=== PATIENT | female | born 1990 | race Two or more races ===

== ENCOUNTER 2016-11-18 14:27 | Emergency (ER) | payer MEDICAID ==
[2016-11-18] MEDS ORDERED: NORMAL SALINE 1000 ML 1,000 ML IV ONE (15:27)
[2016-11-18 15:49] LABS: APPEARANCE,URINE SLIGHTLY-CLOUDY; BILIRUBIN,URINE NEGATIVE (NEGATIVE); GLUCOSE, URINE NEGATIVE (NEGATIVE); KETONES,URINE 20 mg/dL (NEGATIVE); LEUKOCYTE ESTERASE,URINE NEGATIVE (NEGATIVE); NITRITE,URINE NEGATIVE (NEGATIVE); PROTEIN,URINE NEGATIVE (NEGATIVE); URINE SPECIFIC GRAVITY 1.015; UROBILINOGEN,URINE NEGATIVE mg/dL (<2.0)
[2016-11-18 16:07] LABS: URINE BARBITURATES SCREEN NEGATIVE; URINE METHADONE SCREEN NEGATIVE; URINE PHENCYCLIDINE SCREEN NEGATIVE
[2016-11-18 17:01] LABS: ABSOLUTE BASOPHILS # (AUTO) 0.1 10^3/uL (0.0-0.2); ABSOLUTE EOSINOPHILS # (AUTO) 0.1 10^3/uL (0.0-0.6); ABSOLUTE LYMPHOCYTES (AUTO) 0.8 10^3/uL (0.5-4.7); ABSOLUTE MONOCYTES (AUTO) 0.6 10^3/uL (0.1-1.4); BASOPHILS % (AUTO) 0.8 % (0-2); EOSINOPHILS % (AUTO) 0.5 % (0-6); HEMATOCRIT 43.6 % (36.0-47.0); HEMOGLOBIN 14.3 g/dL (12.0-15.5); HGB HCT DIFFERENCE -0.7; LYMPHOCYTES % (AUTO) 5.2 % (13-45); MEAN CORPUSCULAR HGB CONC 32.8 g/dL (32.0-36.0); MEAN CORPUSCULAR VOLUME 98 fl (80-97); MONOCYTES % (AUTO) 3.8 % (3-13); RED BLOOD COUNT 4.47 10^6/uL (3.72-5.28); RED CELL DISTRIBUTION WIDTH 13.2 % (11.5-14.0); SEGMENTED NEUTROPHILS % (AUTO) 89.7 % (42-78); WHITE BLOOD COUNT 14.5 10^3/uL (4.0-10.5)
[2016-11-18 18:39] LABS: ALANINE AMINOTRANSFERASE 29 U/L (9-52); ALBUMIN 5.2 g/dL (3.5-5.0); ALKALINE PHOSPHATASE 83 U/L (38-126); ASPARTATE AMINO TRANSFERASE 18 U/L (14-36); BILIRUBIN,TOTAL 0.6 mg/dL (0.2-1.3); BLOOD UREA NITROGEN 8 mg/dL (7-20); CALCIUM 9.6 mg/dL (8.4-10.2); CARBON DIOXIDE 18 mmol/L (22-30); CHLORIDE 108 mmol/L (98-107); CREATININE RESULT 0.75 mg/dL (0.52-1.25); GLUCOSE 103 mg/dL (75-110); LIPASE 39.4 U/L (23-300); POTASSIUM 4.2 mmol/L (3.6-5.0); SODIUM 146.3 mmol/L (137-145); TOTAL PROTEIN 7.8 g/dL (6.3-8.2)
[2016-11-18 18:42] LABS: ALCOHOL < 10 mg/dL (NONE DETECTED); ANION GAP 20 (5-19)
--- NOTE | 2016-11-18 20:03 | ER Document Report ---
ED General - General Chief Complaint: Probable Seizure Stated Complaint: POSSIBLE SEIZURE Past Medical History Neurological Medical History: Reports: Hx Seizures Physical Exam - Vital signs Vitals: Resp Pulse Ox 17 97 11/18/16 14:43 11/18/16 14:43 Course - Vital Signs Vital signs: Temp Pulse Resp BP Pulse Ox 98.1 F 91 16 132/80 H 99 11/18/16 21:27 11/18/16 21:27 11/18/16 21:27 11/18/16 21:27 11/18/16 21:27 - Laboratory Result Diagrams: 11/18/16 16:31 11/18/16 17:50 Laboratory results interpreted by me: 11/18/16 11/18/16 11/18/16 15:11 16:31 17:50 WBC 14.5 H MCV 98 H Seg Neutrophils % 89.7 H Lymphocytes % 5.2 L Absolute Neutrophils 13.0 H Sodium 146.3 H Chloride 108 H Carbon Dioxide 18 L Anion Gap 20 H Albumin 5.2 H Urine Ketones 20 H Urine Blood MODERATE H Salicylates < 1.0 L Acetaminophen < 10 L Discharge - Discharge Clinical Impression: possible seizure, Dehydration Condition: Good Disposition: HOME, SELF-CARE Instructions: Seizure, Known Epileptic ([facility]), Dehydration ([facility]) Additional Instructions: Continue to take your seizure medication. Follow-up with physicians provided to establish care here in [place] if you plan on staying for an extended period time. Prescriptions: Ondansetron [Zofran Odt 4 mg Tablet] 4 mg PO Q4HP PRN #30 tab.rapdis PRN Reason: Referrals: ELIU BROWN MD [ACTIVE STAFF] - Follow up as needed VARGHESE GRANADOS MD [ACTIVE STAFF] - Follow up as needed
[2016-11-18 21:27] VITALS: BP 132/80
[2016-11-18] MEDS ORDERED: ONDANSETRON ODT 4 MG TAB (6 TAB/DSPK) PO PRN (21:38)
--- NOTE | 2016-11-18 22:38 | ER Document Report ---
ED General - General Chief Complaint: Probable Seizure Stated Complaint: POSSIBLE SEIZURE - HPI Patient complains to provider of: possible seizure Notes: Patient coming in for possible seizure. Patient has friend bedside for states her saw the seizure activity described as generalized shaking outpatient was awake during the entire time. For the bedside taste patient was texting during the seizure. Patient states she takes Lamictal. Patient also is complains of nausea. Upon my initial evaluation patient is lying in bed and is uncooperative with staff however she is alert and awake. Patient initially does not want to cooperate with examination but then later on complies. No fevers no chills no abdominal pain chest pain had pain or trauma. Patient states increased stress over the last few days. Patient states she's never been diagnosed with pseudoseizures states her seizures are mostly grand mal. States she is compliant with her Lamictal Past Medical History - Social History Smoking Status: Unknown if Ever Smoked Family History: Reviewed & Not Pertinent Neurological Medical History: Reports: Hx Seizures Review of Systems - Review of Systems Constitutional: No symptoms reported EENT: No symptoms reported Cardiovascular: No symptoms reported Respiratory: No symptoms reported Gastrointestinal: Nausea Genitourinary: No symptoms reported Female Genitourinary: No symptoms reported Musculoskeletal: No symptoms reported Skin: No symptoms reported Hematologic/Lymphatic: No symptoms reported Neurological/Psychological: Seizure -: Yes All other systems reviewed and negative Physical Exam - Vital signs Vitals: Resp Pulse Ox 17 97 11/18/16 14:43 11/18/16 14:43 Interpretation: Normal - General General appearance: Appears well, Alert - HEENT Head: Normocephalic, Atraumatic Eyes: Normal Pupils: PERRL - Respiratory Respiratory status: No respiratory distress Chest status: Nontender Breath sounds: Normal Chest palpation: Normal - Cardiovascular Rhythm: Regular Heart sounds: Normal auscultation Murmur: No - Abdominal Inspection: Normal Distension: No distension Bowel sounds: Normal Tenderness: Nontender Organomegaly: No organomegaly - Back Back: Normal, Nontender - Extremities General upper extremity: Normal inspection, Nontender, Normal color, Normal ROM , Normal temperature General lower extremity: Normal inspection, Nontender, Normal color, Normal ROM , Normal temperature, Normal weight bearing. No: Kaylan's sign - Neurological Neuro grossly intact: Yes Cognition: Normal Orientation: AAOx4 Nba Coma Scale Eye Opening: Spontaneous Nba Coma Scale Verbal: Oriented Nba Coma Scale Motor: Obeys Commands Nba Coma Scale Total: 15 Speech: Normal Motor strength normal: LUE, RUE, LLE, RLE Sensory: Normal - Psychological Associated symptoms: Normal affect, Normal mood - Skin Skin Temperature: Warm Skin Moisture: Dry Skin Color: Normal Course - Re-evaluation Re-evalutation: 11/18/16 22:37 Laboratory dehydration. Patient was given IV fluids here no seizure activity seen. Patient and at 3 back to her normal self. Patient was discharged upon discharging patient vomited her krishna piper. Patient was then given a dose of Zofran sixpack of Zofran to go home and a prescription for Zofran. Patient was encouraged follow-up with local PCP or providers given and a neurologist. - Vital Signs Vital signs: Temp Pulse Resp BP Pulse Ox 98.1 F 91 16 132/80 H 99 11/18/16 21:27 11/18/16 21:27 11/18/16 21:27 11/18/16 21:27 11/18/16 21:27 - Laboratory Result Diagrams: 11/18/16 16:31 11/18/16 17:50 Laboratory results interpreted by me: 11/18/16 11/18/16 11/18/16 15:11 16:31 17:50 WBC 14.5 H MCV 98 H Seg Neutrophils % 89.7 H Lymphocytes % 5.2 L Absolute Neutrophils 13.0 H Sodium 146.3 H Chloride 108 H Carbon Dioxide 18 L Anion Gap 20 H Albumin 5.2 H Urine Ketones 20 H Urine Blood MODERATE H Salicylates < 1.0 L Acetaminophen < 10 L Discharge - Discharge Clinical Impression: possible seizure, Dehydration Condition: Good Disposition: HOME, SELF-CARE Instructions: Dehydration ([facility]), Seizure, Known Epileptic ([facility]) Additional Instructions: Continue to take your seizure medication. Follow-up with physicians provided to establish care here in [place] if you plan on staying for an extended period time. Prescriptions: Ondansetron [Zofran Odt 4 mg Tablet] 4 mg PO Q4HP PRN #30 tab.rapdis PRN Reason: Referrals: VARGHESE GRANADOS MD [ACTIVE STAFF] - Follow up as needed ELIU BROWN MD [ACTIVE STAFF] - Follow up as needed
== END 2016-11-18 21:27 | disposition home or self-care (01) ==
LOC: ER 14:27
DX: G40.909 Epilepsy, unspecified, not intractable, without status epilepticus (principal); E86.0 Dehydration; R11.10 Vomiting, unspecified
CPT/HCPCS: 99284; 96360; 51701; 36415; 80307 ×4; 83690; 83735; 85025; 81025; 80053; 80175; 81001; J7030